=== PATIENT | male | born 1940 | race Caucasian/White ===

== ENCOUNTER 2017-05-16 10:07 | Emergency (ER) | payer MEDICARE ==
[2017-05-16] MEDS ORDERED: BACTRIM DS1 TAB PO (10:36)
[2017-05-16] MEDS ORDERED: CEPHALEXIN500 M1 PO (10:36)
[2017-05-16] MEDS ORDERED: BAYER ASPIRIN E81 MG PO (10:39)
[2017-05-16] MEDS ORDERED: ATORVASTATIN CA80 MG PO (10:39)
[2017-05-16] MEDS ORDERED: CARVEDILOL25 MG PO (10:39)
[2017-05-16] MEDS ORDERED: PROZAC40 MG PO (10:40)
[2017-05-16] MEDS ORDERED: LISINOPRIL20 M1 PO (10:40)
[2017-05-16] MEDS ORDERED: FINASTERIDE5 MG PO (10:40)
[2017-05-16] MEDS ORDERED: METFORMIN HCL500 M3 PO (10:41)
[2017-05-16] MEDS ORDERED: TAMSULOSIN0.4 MG PO (10:41)
[2017-05-16] MEDS ORDERED: COUMADIN4 MG PO (10:43)
[2017-05-16 11:42] VITALS: BP 141/74
== END 2017-05-16 11:38 | disposition home or self-care (01) ==
LOC: ED 10:07
DX: L03.012 Cellulitis of left finger (principal); E11.9 Type 2 diabetes mellitus without complications; I10 Essential (primary) hypertension; I25.10 Atherosclerotic heart disease of native coronary artery without angina pectoris; Z95.810 Presence of automatic (implantable) cardiac defibrillator

== ENCOUNTER 2020-04-30 09:34 | Emergency (ER) | payer MEDICARE ==
[~2020-04-30] VITALS: Ht 185.4 cm; Wt 109.0 kg
[~2020-04-30 09:34] MED LIST: ACETAMINOPHEN P1 TA2 PO; ATORVASTATIN CA80 MG PO; BACTRIM DS1 TAB PO; BAYER ASPIRIN E81 MG PO; CARVEDILOL25 MG PO; CEPHALEXIN500 M1 PO; COUMADIN4 MG PO; DEMADEX10 MG PO; FINASTERIDE5 MG PO; LISINOPRIL20 M1 PO; METFORMIN HCL500 M3 PO; NORVASC10 M1 PO; OMEPRAZOLE DR40 MG PO; PAROXETINE PO; PROZAC40 MG PO; TAMSULOSIN0.4 MG PO; TIKOSYN250 MCG PO; [UNRECOGNIZED DRUG - OTHER] PO
[2020-04-30] MEDS ORDERED: ACETAMINOP160 MG/5 M PO (09:52)
[2020-04-30] MEDS ORDERED: XARELTO10 MG PO (09:52)
[2020-04-30 10:26] LABS: HEMATOCRIT 37.8 % (39.0-50.0); HEMOGLOBIN 11.8 g/dl (14.0-18.0); IMMATURE GRANULOCYTES 0.3 % (0.0-5.0); MEAN CELL VOLUME 79.7 fL CALC (80.0-100.0); MEAN CORPUSCULAR HGB 24.9 pG CALC (26.0-32.0); MEAN CORPUSCULAR HGB CONC 31.2 g/dL CAL (32.0-36.0); NEUT# 4.13 thou/uL (1.82-7.42); RED BLOOD COUNT 4.74 mill/uL (4.70-6.10); RED CELL DISTRI WIDTH 15.6 % (11.5-15.5)
[2020-04-30 10:48] LABS: ALBUMIN 4.1 g/dL (3.2-5.0); ALKALINE PHOSPHATASE 62 u/l (38-126); ANION GAP 12 (6-22 (CALC)); BILIRUBIN, TOTAL 0.7 mg/dL (0.0-1.4); BUN 20 mg/dL (8-23); BUN/CREATININE RATIO 17 (12-20 (CALC)); CARBON DIOXIDE 30 mmol/l (22-30); CHLORIDE 103 mmol/l (95-108); CREATININE 1.2 mg/dL (0.7-1.3); GFR 59 ML/MIN (>=60 (CALC)); GFR FOR AFR.AMER. > 60 ML/MIN (>=60 (CALC)); POTASSIUM 4.1 mmol/l (3.5-5.1); SGOT/AST 25 u/l (19-48); SODIUM 140 mmol/l (137-146); TOTAL PROTEIN 7.4 g/dL (6.3-8.2)
[2020-04-30] MEDS ORDERED: CEPHALEXIN500 MG PO (12:12)
[2020-04-30] MEDS ORDERED: FLONASE AL50 MCG/ACT (12:12)
[2020-04-30] MEDS ORDERED: CLARITIN10 M1 PO (12:12)
[2020-04-30 12:38] VITALS: BP 134/89
== END 2020-04-30 12:38 | disposition home or self-care (01) ==
LOC: ED 09:34
PROVIDERS: Emergency Medicine
DX: J32.9 Chronic sinusitis, unspecified (principal); I11.0 Hypertensive heart disease with heart failure; I50.9 Heart failure, unspecified; E11.9 Type 2 diabetes mellitus without complications; I25.10 Atherosclerotic heart disease of native coronary artery without angina pectoris; Z95.810 Presence of automatic (implantable) cardiac defibrillator; Z20.822 Contact with and (suspected) exposure to COVID-19